=== PATIENT | female | born 1985 | race African-American/Black ===

== ENCOUNTER 2018-03-23 10:24 | Inpatient (IN) | payer OTHER ==
[~2018-03-23] VITALS: Ht 170.2 cm; Wt 69.9 kg
[2018-03-23] MEDS ORDERED: ONDANSETRON ODT 4 MG TAB.RAPDIS PO PRN (12:15)
[2018-03-23] MEDS ORDERED: ACETAMINOPHEN 325 MG TABLET PO PRN (12:15)
[2018-03-23 12:18] VITALS: BP 133/87
[2018-03-23 12:44] LABS: BASO % 1 % (0-3); EOS % 1 % (0-3); HEMATOCRIT 34.4 % (36.0-47.0); HEMOGLOBIN 11.3 g/dL (12.0-15.5); LYMPH # 1.1 x10^3/uL (1.0-4.8); LYMPH % 36 % (24-48); MEAN CORPUSCULAR HEMOGLOBIN 28 pg (25-35); MEAN CORPUSCULAR HGB CONC 33 g/dL (31-37); MEAN CORPUSCULAR VOLUME 84 fL (79-100); MONO # 0.4 x10^3/uL (0.0-1.1); MONO % 15 % (0-9); NEUT # 1.4 x10^3uL (1.8-7.7); NEUT % 48 % (31-73); PLATELET COUNT 330 x10^3/uL (140-400); RED BLOOD COUNT 4.08 x10^6/uL (3.50-5.40); RED CELL DISTRIBUTION WIDTH 14.5 % (11.5-14.5)
[2018-03-23 13:01] LABS: ALBUMIN 3.9 g/dL (3.4-5.0); CALCIUM 8.9 mg/dL (8.5-10.1); CREATININE 0.8 mg/dL (0.6-1.0); GFR 98.8; POTASSIUM 3.4 mmol/L (3.5-5.1); TOTAL BILIRUBIN 0.2 mg/dL (0.2-1.0); TOTAL PROTEIN 7.9 g/dL (6.4-8.2)
[2018-03-23] MEDS: IV NORMAL SALINE 1,000ML 1,000 ML IV SCH ×2 (13:14→21:15)
--- NOTE | 2018-03-23 14:05 | RAD ---
EXAM: Chest, 2 views. HISTORY: Shortness of breath. COMPARISON: None. FINDINGS: Frontal and lateral views the chest are obtained. There is no infiltrate, pleural effusion or pneumothorax. The heart is normal in size. IMPRESSION: No acute pulmonary finding. Electronically signed by: Teodora Gibbs MD (03/23/2018 2:02 PM) [place] [id number]
[2018-03-23 14:19] LABS: BACTERIA,URINE 0 /HPF (0-FEW); BILIRUBIN,URINE NEG (NEG); CLARITY,URINE CLEAR; COLOR,URINE YELLOW; GLUCOSE,URINE NEG (NEG); NITRITE,URINE NEG (NEG); SQUAMOUS EPITHELIAL CELL,UR MOD /LPF; UROBILINOGEN,URINE 0.2 mg/dL (0.2 mg/dL)
[2018-03-23] MEDS ORDERED: PRED20TA PO (14:20)
[2018-03-23] MEDS ORDERED: HYDR200T71 PO (14:20)
[2018-03-23] MEDS ORDERED: GABA-585 PO (14:20)
[2018-03-23] MEDS ORDERED: CETI10TA22 PO (14:20)
[2018-03-23] MEDS ORDERED: AMLO5TAB4 PO (14:20)
[2018-03-23] MEDS ORDERED: MYCO250C PO (14:20)
[2018-03-23 14:43] VITALS: BP 125/79
[2018-03-23] MEDS: IPRATRPIUM/ALBUTEROL 0.5/2.5MG 3 ML NEBU. NEB SCH ×2 (16:33→20:38)
[2018-03-23 19:45] VITALS: BP 134/87
[2018-03-23] MEDS ORDERED: GABAPENTIN 100 MG CAPSULE. PO SCH (21:00)
[2018-03-23] MEDS: DOXYCYCLINE HYCLATE 100 MG in IV DEXTROSE 5% 100 ML IV SCH (21:11)
[2018-03-23 22:54] VITALS: BP 146/87
[2018-03-24 05:14] VITALS: BP 133/80
[2018-03-24] MEDS: IPRATRPIUM/ALBUTEROL 0.5/2.5MG 3 ML NEBU. NEB SCH ×2 (05:17→09:29)
[2018-03-24 06:21] LABS: CALCIUM 8.4 mg/dL (8.5-10.1); CREATININE 0.7 mg/dL (0.6-1.0); GFR 115.2; POTASSIUM 3.8 mmol/L (3.5-5.1)
[2018-03-24 06:23] LABS: BASO % 1 % (0-3); EOS # 0.1 x10^3/uL (0.0-0.7); EOS % 2 % (0-3); HEMATOCRIT 32.1 % (36.0-47.0); HEMOGLOBIN 10.6 g/dL (12.0-15.5); LYMPH # 1.1 x10^3/uL (1.0-4.8); LYMPH % 37 % (24-48); MEAN CORPUSCULAR HEMOGLOBIN 28 pg (25-35); MEAN CORPUSCULAR HGB CONC 33 g/dL (31-37); MEAN CORPUSCULAR VOLUME 84 fL (79-100); MONO # 0.4 x10^3/uL (0.0-1.1); MONO % 13 % (0-9); NEUT # 1.5 x10^3uL (1.8-7.7); NEUT % 47 % (31-73); PLATELET COUNT 303 x10^3/uL (140-400); RED BLOOD COUNT 3.81 x10^6/uL (3.50-5.40); RED CELL DISTRIBUTION WIDTH 14.6 % (11.5-14.5); WHITE BLOOD COUNT 3.1 x10^3/uL (4.0-11.0)
[2018-03-24 08:27] VITALS: BP 133/80
[2018-03-24] MEDS: IV NORMAL SALINE 1,000ML 1,000 ML IV SCH (08:28)
[2018-03-24] MEDS ORDERED: LACTOBACILLUS RHAMNOSUS GG 1 CAPSULE. PO SCH (09:00)
[2018-03-24] MEDS ORDERED: CETIRIZINE HCL 10 MG TABLET PO SCH (09:00)
[2018-03-24] MEDS ORDERED: HYDROXYCHLOROQUINE 200 MG TABLET PO SCH (09:00)
[2018-03-24] MEDS ORDERED: amLODIPine BESYLATE 5 MG TABLET PO SCH (09:00)
[2018-03-24] MEDS ORDERED: MYCOPHENOLATE MOFETIL 250 MG CAPSULE PO SCH (09:00)
[2018-03-24] MEDS ORDERED: predniSONE 20 MG TABLET PO SCH (09:00)
[2018-03-24] MEDS: DOXYCYCLINE HYCLATE 100 MG in IV DEXTROSE 5% 100 ML IV SCH (09:00)
[2018-03-24] MEDS ORDERED: FLUC100T7 PO (09:05)
[2018-03-24] MEDS ORDERED: IPRA3AMP29 NEB (09:06)
== END 2018-03-24 10:20 | disposition home or self-care (01) | DRG 204 ==
LOC: 1 SOUTH 11:53
PROVIDERS: ADMIT Family Medicine; ATTEND Family Medicine
DX: R06.09 Other forms of dyspnea (principal); M35.1 Other overlap syndromes; M32.10 Systemic lupus erythematosus, organ or system involvement unspecified; D89.89 Other specified disorders involving the immune mechanism, not elsewhere classified; I10 Essential (primary) hypertension; R53.83 Other fatigue; J32.9 Chronic sinusitis, unspecified; R50.81 Fever presenting with conditions classified elsewhere; R51 Headache; Z79.899 Other long term (current) drug therapy; Z82.3 Family history of stroke; Z82.49 Family history of ischemic heart disease and other diseases of the circulatory system; Z88.0 Allergy status to penicillin; Z88.8 Allergy status to other drugs, medicaments and biological substances
CPT/HCPCS: 36415; 71046; 80048; 80053; 81001; 83605; 85025; 87040; 87086; 90471; 90756; 94640; J0696; J3490; J7512; J7517; J7620; J7030; Q2035